=== PATIENT | female | born 1980 | race Caucasian/White ===

== ENCOUNTER 2024-12-26 10:22 | Day surgery (SDC) | payer BC ==
[2024-12-25 14:06] VITALS: BMI 27.4
[2024-12-26] MEDS ORDERED: PROPOFOL 20 ML ONE (10:33)
[2024-12-26] MEDS ORDERED: MIDAZOLAM HCL 2 MG/2 ML SINGLE DOSE VIAL ONE (10:33)
[2024-12-26] MEDS ORDERED: LIDOCAINE HCL/PF 2% SDV 5ML VIAL ONE (10:33)
[2024-12-26] MEDS ORDERED: BUPIVACAINE HCL/EPINEPHRINE/PF 30 ML VIAL IJ ONE (10:48)
[2024-12-26] MEDS ORDERED: DEXAMETHASONE SOD PHOSPHATE 4 MG/1 ML VIAL ONE (11:28)
[2024-12-26] MEDS ORDERED: MUPIROCIN 2% TOPICAL OINTMENT FOR DECOLONIZATION NS ONE (12:07)
[2024-12-26] MEDS ORDERED: ONDANSETRON 4 MG/2 ML VIAL ONE (12:20)
[2024-12-26] MEDS ORDERED: PROMETHAZINE HCL 25 MG/1 ML VIAL IVPB PRN (12:39)
[2024-12-26] MEDS ORDERED: ONDANSETRON 4 MG/2 ML VIAL IVPUSH PRN (12:39)
[2024-12-26] MEDS ORDERED: ACETAMINOPHEN INJECTION 100 ML ONE (12:39)
[2024-12-26] MEDS: ACETAMINOPHEN 1000 MG/100 ML BAG IVPB ONE (12:40)
[2024-12-26] MEDS ORDERED: LACTATED RINGERS SOLUTION 1,000 ML IV SCH (12:45)
[2024-12-26 13:27] VITALS: TEMP 97.9
[2024-12-26 14:16] VITALS: BP 112/70; PULSE 67; RESP 18
== END 2024-12-26 14:30 | disposition home or self-care (01) ==
LOC: FASU 10:22
PROVIDERS: ATTEND Plastic Surgery
PROC: 0HX0XZZ Transfer Scalp Skin, External Approach (ICD-10-PCS; principal; 2024-12-26 11:44)
DX: C44.41 Basal cell carcinoma of skin of scalp and neck (principal)
CPT/HCPCS: 81025; 88304-TC; 94760